=== PATIENT | male | born 1985 | race Caucasian/White ===

== ENCOUNTER 2018-05-02 15:22 | Emergency (ER) | payer BC ==
--- NOTE | 2018-05-02 15:55 | ED Physician Chart ---
ED Chief Complaint/HPI - Patient Information Date Seen:: 05/02/18 Time Seen:: 15:25 Chief Complaint:: Low Back Pain History of Present Illness:: onset x 2 days of intermittent, sharp, MS type LBP; pt denies trauma, LOC, ALOC , AMS, H/As, S/T, gait changes, neck pain, weakness, dizziness, paresthesias, cough, C/P, SOB, Abd. Pain, A/N/V/D/C, fever, chills, bleeding, or urinary s/s Allergies:: Allergies Allergy/AdvReac Type Severity Reaction Status Date / Time No Known Allergies Allergy Verified 05/02/18 15:37 Vitals:: Vital Signs - 8 hr 05/02/18 15:24 Temp 98.3 F HR 87 RR 18 BP 171/89 O2 Sat % 97 Historian:: Patient Review:: Nurse's Note Reviewed ED Review of Systems - Review of Systems General/Constitutional: No fever, No chills, No weight loss, No weakness, No diaphoresis, No edema, No loss of appetite Skin: No skin lesions, No rash, No bruising Head: No headache, No light-headedness Eyes: No loss of vision, No pain, No diplopia ENT: No earache, No nasal drainage, No sore throat, No tinnitus Neck: No neck pain, No swelling, No thyromegaly, No stiffness, No mass noted Cardio Vascular: No chest pain, No palpitations, No PND, No orthopnea, No edema Pulmonary: No SOB, No cough, No sputum, No wheezing GI: No nausea, No vomiting, No diarrhea, No pain, No melena, No hematochezia, No constipation, No hematemesis G/U: No dysuria, No frequency, No hematuria, No nacturia Musculoskeletal: No bone or joint pain, Back pain, No muscle pain Endocrine: No polyuria, No polydipsia Psychiatric: No prior psych history, No depression, No anxiety, No suicidal ideation, No homicidal ideation, No auditory hallucination, No visual hallucination Hematopoietic: No bruising, No lymphadenopathy Allergic/Immuno: No urticaria, No angioedema Neurological: No syncope, No focal symptoms, No weakness, No paresthesia, No headache, No seizure, No dizziness, No confusion, No vertigo ED Past Medical History - Past Medical History Obtainable: Yes Past Medical History: No significant medical hx Family History: None Social History: Non Smoker, No Alcohol, No Drug Use, Single Surgical History: None Psychiatricy History: None Medication: Reviewed Family Medical History - Family Member Mother History Unknown: Yes ED Physical Exam - Physical Examination General/Constitutional: Awake, Well-developed, well-nourished, Alert, No distress, GCS 15, Non-toxic appearing, Ambulatory Head: Atraumatic Eyes: Lids, conjuctiva normal, PERRL, EOMI Skin: Nl inspection, No rash, No skin lesions, No ecchymosis, Well hydrated, No lymphadenopathy ENMT: External ears, nose nl, TM canals nl, Nasal exam nl, Lips, teeth, gums nl , Oropharynx nl, Tonsils nl Neck: Nontender, Full ROM w/o pain, No JVD, No nuchal rigidity, No bruit, No mass, No stridor Other Neck comments:: supple; no meningeal signs; no cervical tenderness; no bruits Respiratory: Nl effort/Exclusion, Clear to Auscultation, No Wheeze/Rhonchi/Rales Cardio Vascular: RRR, No murmur, gallop, rubs, NL S1 S2, Carotid/Femoral/Distal pulses equal bilaterally GI: No tenderness/rebounding/guarding, No organomegaly, No hernia, Normal BS's, Nondistended, No mass/bruits, No McBurney tenderness, Rectum exam nl Other GI comments:: no pulsatile masses : No CVA tenderness Extremities: No tenderness or effusion, Full ROM, normal strength in all extremities, No edema, Normal digits & nails Neuro/Psych: Alert/oriented, DTR's symmetric, Normal sensory exam, Normal motor strength, Judgement/insight normal, Mood normal, Normal gait, No focal deficits Other Neuro/Psych comments:: no focal signs Misc: Normal back, No paraspinal tenderness Other Misc comments:: + L-S bilateral paravertebral soft tissue tenderness with no loss of ROMs; Full active ROMs of all joints; no septic joints; no cellulitis; DTRs: 2+ bilaterally ; Gait: WNL; no FBs; good motor, tendon, and sensory functions; good NV functions; ED Labs/Radiology/EKG Results - Lab Results Comments:: Reviewed - Radiology Results Comments:: Mild DJD; NAD ED Septic Shock - . Is Septic Shock (SBP<90, OR Lactate>4 mmol\L) present?: No - <6hrs of presentation: Vital Signs: Vital Signs - 8 hr 05/02/18 15:24 Temp 98.3 F HR 87 RR 18 BP 171/89 O2 Sat % 97 ED Reassessment (Disposition) - Reassessment Reassessment:: pt is asymptomatic upon discharge Reassessment Condition:: Improved - Diagnosis Diagnosis:: Dx: Back Pain; Low Back Pain; L-S Strain; DJD; Osteoarthritis; Back Pain- resolved; L-S Sprain; Sprains and Strains - Aftercare/Follow up Instructions Aftercare/Follow-Up Instructions:: Counseled pt regarding lab results/diagnosis & need follow up, Refer to Discharge Instructions, Counseled pt & family regarding lab results/diagnosis & need follow up Medication Prescribed:: Rx: Motrin 400mg po tid prn pain; Ice/Heat to the Back; Rest; - Patient Disposition Discharge/Transfer:: Home Condition at Disposition:: Stable, Improved (X-Rays Instructions; RTER prn if existing s/s reoccur and/or get worse and/or any other new s/s occur; ACIs given for all above Dx; Refer to Spinal Specialist/Orthopedist/[employer] D[employer] Officer MOLINA; F /U with PMD in one day or prn; RTER prn if concerned)
--- NOTE | 2018-05-03 08:04 | Diagnostic Imaging Report ---
CT abdomen and pelvis without intravenous contrast Indication: Abdominal pain Comparison: None, Technique: Axial images were obtained from the lung bases to the bilateral proximal femurs without IV contrast. Coronal reconstructions were made. total DLP: 1048, [id number] FINDINGS: Hypoventilatory atelectatic changes of the lung bases are noted. Assessment of the solid organs is limited due to lack of IV contrast. Hepatomegaly is noted with fatty infiltration. No discrete focal lesions. There is also mild splenomegaly. No focal lesions identified. No there is a 1.6 cm right adrenal nodule with indeterminate Hounsfield units. No evidence of hydronephrosis. 4 mm nonobstructive left renal stone is noted. Small bilateral fat-containing inguinal hernias are noted. Moderate stool is seen throughout the colon. No appendicitis. No free fluid or free air. Borderline prominent retroperitoneal lymph nodes are noted. Prominent inguinal lymph nodes are noted the largest on the left side measuring 2.3 cm. Mild degenerative changes of the spine are noted. IMPRESSION: No evidence of bowel obstruction. No evidence of acute appendicitis. Moderate stool throughout the colon Hepatosplenomegaly. There is also fatty infiltration of the liver. 1.6 cm right adrenal nodule with indeterminate Hounsfield units. Recommend correlation with clinical history and old exams. A follow-up dedicated CT adrenal mass protocol is recommended for further assessment. 4 mm nonobstructive left renal stone Prominent bilateral inguinal lymph nodes the largest on the left side measuring 2.3 cm. Findings may be due to underlying infectious inflammatory neoplastic process. Recommend clinical correlation and follow-up. Borderline prominent retroperitoneal lymph nodes nonspecific.
--- NOTE | 2018-05-03 09:39 | Diagnostic Imaging Report ---
CT scan lumbar spine HISTORY: Pain Total DLP equals 1048 CTDI equals 18.2 Axial sections were obtained through the lumbar spine. Additional sagittal and coronal reformatted images are provided. Alignment is normal. Mild degenerative changes with slight irregularity and Schmorl node formation noted about the endplates of several lower thoracic vertebrae. No acute abnormalities. No fractures. No definite extradural abnormalities. IMPRESSION: 1. No acute abnormalities 2. Evidence of mild degenerative changes within the lower thoracic/upper lumbar spine.
== END 2018-05-02 17:40 | disposition home or self-care (01) ==
LOC: ER 15:22
DX: S39.012A Strain of muscle, fascia and tendon of lower back, initial encounter (principal); S33.9XXA Sprain of unspecified parts of lumbar spine and pelvis, initial encounter; M19.90 Unspecified osteoarthritis, unspecified site; X58.XXXA Exposure to other specified factors, initial encounter; Y93.89 Activity, other specified; Y92.89 Other specified places as the place of occurrence of the external cause; Y99.8 Other external cause status
CPT/HCPCS: 99284; 96372; 72131; 74176; J1885; 76377; Z7502